=== PATIENT | female | born 1945 | race Caucasian/White ===

== ENCOUNTER 2024-06-25 09:30 | Day surgery (SDC) | payer MEDICARE, OTHER, SELFPAY ==
--- NOTE | 2024-06-25 06:38 | W.ANESPRE ---
General Info Date of Service Date Performed: 06/25/24 Height: 5 ft 2 in Weight: 48.988 kg Body Mass Index (BMI): 19.7 Surgical Procedure: Operation Date: 06/25/24 10:40 Proposed Procedure Side Surgeon p Cataract Extraction with IOL Implant Left Byron Zaldivar MD Meds Allergies and Home Medications Allergies Allergy/AdvReac Type Severity Reaction Status Date / Time No Known Allergies Allergy Verified 06/25/24 09:56 Home Medication ?Medication ?Instructions ?Recorded ascorbic acid (vitamin C) 500 mg 500 mg PO DAILY 06/24/24 capsule cholecalciferol (vitamin D3) 25 2,000 unit PO DAILY 06/24/24 mcg (1,000 unit) capsule (Vitamin D3) Current Visit Medications: Current Medications Generic Name Dose Route Start Last Admin Trade Name Freq PRN Reason Stop Dose Admin Acetaminophen 1,000 mg 06/25/24 06:00 Acetaminophen 500 Mg Tab PO 07/25/24 05:59 Q4H PRN PRN Balanced Salt Solution 500 ml 06/25/24 06:00 Balanced Salt Soln.-Plus 500 Ml Bag OP 07/25/24 05:59 DIRECTED [facility] Miscellaneous Medication 0 ml 06/25/24 06:00 Prednisolone 1%, Moxifloxacin 0.5%, Bromfenac 0.09% 5.6ml Btl OS 07/25/24 05:59 DIRECTED [facility] Miscellaneous Medication 0 ml 06/25/24 06:00 Tropicam./Phenyleph. 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 cataract, left eye Acute H25.12 Medical History Medical History History of PFTs Thoracoscopic surgical procedure converted to open procedure Weight loss Vocal cord dysfunction Uterine leiomyoma UTI (urinary tract infection) Urge incontinence Trigger finger of right hand Tremor Subclinical hypothyroidism Rectal prolapse Rectal polyp Osteoporosis Neuroendocrine tumor Neoplasm of lung Memory loss or impairment HLD (hyperlipidemia) Hiatal hernia Garbled speech Elevated TSH EEG abnormality Surgical History Surgical History (Updated 06/25/24 @ 11:01 by Byron Zaldivar MD) Hx of esophagogastroduodenoscopy Hx of cholecystectomy Hx of colonoscopy History of bronchoscopy S/P lobectomy of lung Tobacco Smoking/Tobacco Use Status: Never Alcohol Alcohol Intake: current Alcohol intake frequency: 0-2 drinks per day Alcohol type: wine Substance Use Substance use type: does not use Vital Signs and Lab Results Vital Signs Comment Vital Signs Comment:: Temp Pulse Resp BP Pulse Ox 36.1 C L 60 16 134/90 100 06/25/24 11:00 06/25/24 11:00 06/25/24 11:00 06/25/24 11:00 06/25/24 11:00 Lab Results Blood Type / Crossmatch: No Data to Display Complete Blood Count: No Data to Display Complete Metabolic Panel: No Data to Display Liver Function Panel: No Data to Display Coagulation Panel: No Data to Display Cardiac Panel: No Data to Display Arterial Blood Gas: No Data to Display Venous Blood Gas: No Data to Display Pancreas Panel: No Data to Display Thyroid Panel: No Data to Display Infectious Disease: No Data to Display Blood Cultures: No Data to Display Toxicology Panel: No Data to Display Anesthesia Assessment and Plan Anesthesia History Personal History: No History of Anesthesia Complications Family History: No Family History of Anesthesia Complications Exercise Tolerance Exercise Tolerance: Metabolic Equivalents>4 Cardiac & Pulmonary Exam Cardiac Exam: Normal S1/S2 Heart Sounds Pulmonary Exam: Clear Bilateral Breath Sounds Implantable Cardiac Device Does patient have a Pacemaker or an ICD?: No Airway Exam Known Difficult Airway: No Mallampati Class: 3 Mouth Opening: Normal (> 3cm) Thyromental Distance: Greater than 3 cm Neck Range of Motion: Full ROM Neck Circumference: Normal Teeth Condition: Normal Dentition and Removable Dentures/Plates Upper ASA Classification ASA Score: ASA 2 Emergency Case?: No NPO Status NPO Status: NPO Clears >2 hours, Solids >8 hours Anesthesia Plan Resuscitation Status: Full Code Anesthesia Technique: MAC Anesthesia Airway Planned: Natural Airway Monitors Used: Standard Monitors Preoperative Comments:: 78 yo female for cataract removal. sig pmhx: lung CA/resection/lobectomy, hypothyroid, tremor, never smoker, occ EtOh.
[2024-06-25 09:47] VITALS: BP 164/74; PULSE 57; RESP 17; TEMP 36.4; O2SAT 96
[2024-06-25 09:49] VITALS: BMI 19.7
[2024-06-25] MEDS: Tropicam./Phenyleph. (1/2.5%) 5 ML BTL OS ×3 (09:54→10:05)
[2024-06-25] MEDS: Prednisolone 1%, Moxifloxacin 0.5%, Bromfenac 0.09% 5.6ML BTL OS (10:42)
[2024-06-25] MEDS: Povidone-Iodine Ophth 30 ML BTL (10:43)
[2024-06-25] MEDS: Lidocaine 1% Pres-Free 5 ML VIAL (10:44)
[2024-06-25] MEDS: Duovisc Viscoelastic System EACH 1 EACH (10:45)
[2024-06-25] MEDS: Balanced Salt Soln.-PLUS 500 ML BAG OP (10:46)
[2024-06-25 11:00] VITALS: BP 134/90; PULSE 60; RESP 16; TEMP 36.1; O2SAT 100
--- NOTE | 2024-06-25 11:01 | W.PM.DSUDISC ---
Date of service: 06/25/24 Time of Service: 11:01 Discharge Plan Disposition Patient Disposition: Home Discharge Details Attending Provider: Byron Zaldivar Primary Care Provider: Unknown,Unknown Home Meds and New Rx's Prescriptions: No Action cholecalciferol (vitamin D3) [Vitamin D3] 25 mcg (1,000 unit) capsule 2,000 unit PO DAILY ascorbic acid (vitamin C) 500 mg capsule 500 mg PO DAILY Discharge Instructions Stand Alone Forms: [facility] Post-Op Cataract, Richard Maynard ([facility]U) Discharge Orders Discharge Orders: Discharge Order (Routine); Ordered 06/25/24 Ordered By: Byron Zaldivar DS: Diagnosis Discharge Diagnosis (1) Nuclear age-related cataract, left eye: Status: Resolved
--- NOTE | 2024-06-25 11:01 | W.PM.OP ---
Date of service: 06/25/24 Time of Service: 11:01 Operative Note Operative Note DATE OF PROCEDURE: 06/25/24 POST-OP DIAGNOSIS: same PROCEDURE: Cataract extraction using phacoemulsification with intraocular lens implant, left eye SURGEON: Byron Zaldivar ANESTHESIA TYPE: Local By Surgeon and MAC Refer to Anesthesia Record PATHOLOGY: none sent COMPLICATIONS: None Patient was transported to: same day Patient's condition: stable Implants: Huang and Huang Tecnis Eyhance [id number] Indications: Progressive decreased vision due to cataract, left eye Procedure Description: CATARACT SURGERY OPERATIVE REPORT PREOPERATIVE DIAGNOSIS: 1. Nuclear cataract, left eye POSTOPERATIVE DIAGNOSIS: Same OPERATION: 1. Cataract extraction using phacoemulsification with posterior chamber intraocular lens implant, left eye. IOL: IOL Wedding Photographer/Model: Huang & Huang Tecnis Eyhance DIB00 IOL Power: + 19.5 diopters IOL Serial Number: [id number] Optic Diameter: 6.0 mm Haptic/Overall Diameter: 13.0 mm PHACO INFO: Talib BALALIKEAurion Vision System with OZil and Active Fluidics Cumulative Dispersed Energy (CDE): 4.93 seconds SURGEON: Byron Zaldivar MD, OREN ANESTHESIA: Monitored A [facility] (MAC), with local sub-tenon's anesthetic infiltration COMPLICATIONS: None SPECIMENS: None INDICATIONS FOR PROCEDURE: The patient is a 78-year-old lady with history of diminished visual acuity in her left eye secondary to the development of nuclear cataract. She is significantly symptomatic that she desires cataract surgery and attempt to improve and maximize her vision. The option of cataract surgery was offered to the patient and she wished to proceed. See office notes for detailed information. PROCEDURE: The correct surgical eye was identified and marked as the left eye and the pupil was dilated in the preoperative area using mydriatics and cycloplegics. The dilated pupil size was 7.0 mm. The patient elected to proceed without oral sedation. The patient was brought to the operating room where cardiopulmonary monitoring was instituted and surgical time-out was performed, confirming the correct operative eye and IOL power. Topical anesthesia was administered and ophthalmic povidone-iodine 5% was instilled into the conjunctival fornices. The mirna-ocular area was prepped with Betadine 10% solution and draped in the usual sterile fashion for intraocular surgery, including an aperture drape. A Tegaderm transparent film dressing was cut in half and used to cover the lashes and lid margins. Care was taken to sequester the lashes and lid margins under the Tegaderm dressing. A lid speculum was placed between the lids of the operative eye and the Talib LuxOR Revalia operating microscope was maneuvered into position. Nigel scissors were then used to make a conjunctival buttonhole approximately 6mm posterior to the limbus in the inferonasal quadrant. Blunt dissection was carried out to expose bare sclera, and a blunt-tipped sub-tenon?s anesthesia cannula was introduced and passed posteriorly along the globe where non-preserved plain lidocaine was injected into posterior sub-Tenon?s space. A sideport knife was used to make a paracentesis port. Intraocular phenylephrine/lidocaine was injected into the anterior chamber.. The anterior chamber was filled with viscoelastic. A keratome knife was used to construct a 2-plane near-clear corneal tunnel extending 2.0mm into clear cornea. A flap was raised on the anterior capsule and capsulorhexis forceps were used to complete a continuous curvilinear capsulorhexis of 5.0 mm. Balanced salt solution was then used to perform cortical cleaving hydrodissection and nuclear hydrodelineation until the lens could be freely rotated within the capsular bag. The lens nucleus was then disassembled and removed within the capsular bag and iris plane using phacoemulsification. Residual cortical material was removed using the irrigation/aspiration handpiece. The posterior capsule was carefully polished to remove as much residual lens epithelial cells as safely possible. The capsular bag was then inflated and the anterior chamber deepened with viscoelastic. The lens implant described above was inserted into the capsular bag using the Huang and Huang Simplicity pre-loaded injector. A Kuglen hook was used to dial the IOL into position. Residual viscoelastic was then removed first from posterior to the IOL, then from the anterior chamber using the I/A handpiece. The lens implant was noted to center nicely within the capsular bag. The incisions were stromally hydrated, and the anterior chamber was reformed using BSS. Then 0.5cc of moxifloxacin 1.0mg/ml were injected into the capsular bag and anterior chamber. The incisions were checked with a Weck spear and found to be secure. Several drops of ophthalmic povidone-iodine 5% were then applied to the eye followed by two drops of Imprimis combination prednisolone/moxifloxacin/nepafenac solution. The drapes were removed and a clear plastic protective eye shield was placed over the eye. The patient was then returned to Same Day Surgery in stable condition.
--- NOTE | 2024-06-25 11:16 | W.ANESPOSTOP ---
Postoperative Evaluation Date, Time and Location Date Performed: 06/25/24 Time Performed: 11:16 Patient Location: Day Surgery Unit Vital Signs Most Recent Imported Vital Signs: Most Recent Vital Signs Temp Pulse Resp BP Pulse Ox 36.1 C L 60 16 134/90 100 06/25/24 11:00 06/25/24 11:00 06/25/24 11:00 06/25/24 11:00 06/25/24 11:00 Pain Score Most Recent Pain Score: Most Recent Pain Score Pain Level 0 06/25/24 11:00 Assessment Mental Status: Awake (Alert & Oriented to Patient Baseline) Airway and Respiratory Function: Patent airway with normal (patient baseline) respiratory exam Cardiovascular Function: Hemodynamically Stable Hydration Status: Adequately Hydrated Nausea & Vomiting: No Nausea or Vomiting Pain: Pt. Denies Any Pain Peripheral Nerve Block: Patient did not receive a nerve block
[2024-06-26] MEDS: Tetracaine 0.5% 4 ML BTL OS (10:35)
== END 2024-06-25 11:17 | disposition home or self-care (01) ==
PROVIDERS: Visit Provider Ophthalmology
PROC: (CPT 66984; principal; 2024-06-25 10:30)
DX: H25.12 Age-related nuclear cataract, left eye (principal)
CPT/HCPCS: 66984; 00123; V2632; J2003